=== PATIENT | female | born 1985 | race Caucasian/White ===

== ENCOUNTER 2016-07-21 17:23 | Emergency (ER) | payer MEDICAID | END 2016-07-21 22:38 | disposition left against medical advice (07) | LOC: ER 17:23 | DX: Z53.21 Procedure and treatment not carried out due to patient leaving prior to being seen by health care provider (principal) | CPT/HCPCS: 36415; 80048; 81001; 84703; 85025; 86901; 87077; 87088; 87186 ==

== ENCOUNTER 2016-07-25 12:37 | Emergency (ER) | payer MEDICAID ==
[2016-07-25] MEDS ORDERED: ONDANSETRON 4 MG VIAL ONE (13:28)
[2016-07-25] MEDS ORDERED: MORPHINE 4 MG/ML SYR ONE (13:29)
[2016-07-25] MEDS ORDERED: SODIUM CHLORIDE 0.9% 1,000 ML ONE (13:29)
== END 2016-07-25 15:25 | disposition home or self-care (01) ==
LOC: ER 12:37
DX: N83.201 Unspecified ovarian cyst, right side (principal); F17.290 Nicotine dependence, other tobacco product, uncomplicated
CPT/HCPCS: 36415; 76830; 80053; 81001; 84703; 85025; 87088; 87491; 87591; 87800; 96361; 96374; 96375

== ENCOUNTER 2016-07-27 17:49 | Emergency (ER) | payer MEDICAID | END 2016-07-27 20:26 | disposition left against medical advice (07) | LOC: ER 17:49 | DX: R55 Syncope and collapse (principal); I95.89 Other hypotension | CPT/HCPCS: 81001; 87088 ==